=== PATIENT | male | born 1985 | race Two or more races ===

== ENCOUNTER 2024-02-26 19:42 | Emergency (ER) | payer SELFPAY ==
[~2024-02-26] VITALS: Ht 170.2 cm; Wt 77.1 kg
[2024-02-26 19:53] VITALS: BP 121/76; TEMP 97.9; O2SAT 99
== END 2024-02-26 19:59 | disposition left against medical advice (07) ==
LOC: ER 19:44
DX: F41.9 Anxiety disorder, unspecified (principal); Z53.21 Procedure and treatment not carried out due to patient leaving prior to being seen by health care provider